=== PATIENT | male | born 1970 | race African-American/Black ===

== ENCOUNTER 2024-07-19 17:46 | Emergency (ER) | payer MEDICAID ==
[~2024-07-19] VITALS: Ht 177.8 cm; Wt 91.0 kg
[2024-07-19 17:50] VITALS: TEMP 36.9; O2SAT 99
[2024-07-19 18:35] LABS: CLARITY URINE CLEAR (CLEAR); GLUCOSE URINE NEGATIVE (NEGATIVE); KETONES URINE NEGATIVE (NEGATIVE); LEUKOCYTE ESTERASE URINE NEGATIVE (NEGATIVE); NITRITE URINE NEGATIVE (NEGATIVE); OCCULT BLOOD URINE TRACE (NEGATIVE); PH URINE 5.5 (4.5-8.0); PROTEIN URINE TRACE (NEGATIVE); SPECIFIC GRAVITY URINE 1.015 (1.005-1.030)
[2024-07-19 18:46] LABS: *AMPHETAMINES SCREEN URINE NEGATIVE (NEGATIVE); *BARBITURATES SCREEN URINE NEGATIVE (NEGATIVE); *BENZODIAZEPINES SCREEN URINE NEGATIVE (NEGATIVE); *COCAINE SCREEN URINE NEGATIVE (NEGATIVE); CANNABINOID URINE SCREEN NEGATIVE (NEGATIVE); ECSTASY MDMA SCREEN URINE NEGATIVE (NEGATIVE); METHADONE URINE SCREEN NEGATIVE (NEGATIVE); OPIATES URINE SCREEN NEGATIVE (NEGATIVE); PHENCYCLIDINE URINE SCREEN NEGATIVE (NEGATIVE)
[2024-07-19 19:05] LABS: BASOPHILS % 0.4 % (0.0-2.0); DIFFERENTIAL COMMENT 0; HEMATOCRIT. 38.4 % (42.0-52.0); LYMPHOCYTES % 20.5 % (20.0-50.0); MEAN CORPUSCULAR HEMOGLOBIN 34.2 pg (28.0-32.0); MEAN CORPUSCULAR HGB CONC 33.8 g/dL (31.0-37.0); MEAN PLATELET VOLUME 8.7 fl (7.4-10.4); MONOCYTES % 11.9 % (2.0-8.0); NEUTROPHILS % 66.2 % (40.0-76.0); PLATELET 192 x1000/uL (130-400); RED CELL DISTRIBUTION WIDTH 14.3 % (11.6-14.6); WHITE BLOOD COUNT 8.3 x1000/uL (4.5-11.0)
[2024-07-19 19:05] LABS: BACTERIA URINE NONE SEEN; COLOR URINE STRAW (YELLOW); RBC URINE NONE SEEN /hpf (0-2); SQUAMOUS EPITHELIAL CELL URINE RARE /lpf (RARE/1+); WBC URINE NONE SEEN /hpf (0-2)
[2024-07-19 19:06] LABS: MUCUS URINE TRACE /lpf (NONE/TRACE); RENAL EPITHELIAL CELLS URINE Rare /lpf
[2024-07-19 19:12] LABS: CHLORIDE 99 mEq/L (98-107); POTASSIUM 3.6 mEq/L (3.5-5.1); SODIUM 134 mEq/L (136-145)
[2024-07-19 19:13] LABS: CALCIUM 9.5 mg/dL (8.7-10.4); CARBON DIOXIDE 24 mEq/L (21-32)
[2024-07-19 19:15] LABS: INR 1.1; PROTHROMBIN TIME 12.1 sec (9.6-11.0)
[2024-07-19 19:17] LABS: TROPONIN I HIGH SENSITIVITY 4 ng/L (3.0-53); UREA NITROGEN BLOOD 18 mg/dL (9-23)
[2024-07-19 19:18] LABS: ALANINE AMINOTRANSFERASE 42 IU/L (10-49); CREATININE 1.3 mg/dL (0.6-1.3); ETHANOL BLOOD < 10 mg/dL (<10); GLUCOSE 99 mg/dL (70-105)
[2024-07-19 19:19] LABS: ALBUMIN 4.8 g/dL (3.2-4.8); ASPARTATE AMINOTRANSFERASE 74 IU/L (<34); PROTEIN TOTAL 8.1 g/dL (6.0-8.3)
[2024-07-19 19:20] LABS: BILIRUBIN DIRECT 0.2 mg/dL (<=3.0); PHOSPHORUS 3.6 mg/dL (2.5-4.9)
[2024-07-19 19:21] LABS: BILIRUBIN TOTAL 0.8 mg/dL (0.1-1.0)
[2024-07-19] MEDS ORDERED: AMLO5TAB88 MT (19:49)
[2024-07-19 20:12] VITALS: BP 148/89; PULSE 96; RESP 18; O2SAT 98
== END 2024-07-19 20:15 | disposition home or self-care (01) ==
LOC: ER 17:46
DX: R07.2 Precordial pain (principal); R25.2 Cramp and spasm; E78.00 Pure hypercholesterolemia, unspecified; I10 Essential (primary) hypertension; Z79.899 Other long term (current) drug therapy
CPT/HCPCS: 80076; 80305; 80048; 81003; 80320; 83880; 83690; 83735; 84100; 85025; 85610; 84484; 36415; 71045; 93005; 99285; Z7610; A4606; G0480